=== PATIENT | female | born 1975 | race Caucasian/White ===

== ENCOUNTER → 2018-04-27 15:30 | Outpatient (CLI) | payer OTHER, SELFPAY ==
--- NOTE | 2018-04-27 15:33 | BI_ITS ---
MAMMOGRAPHY - BILATERAL SCREENING REASON FOR EXAM: Female, 43 years old. Routine annual screening examination. PERTINENT HISTORY: Non-contributory. TECHNIQUE: Digital bilateral breast robyn (3D mammographic acquisition) in the CC and MLO projections. 2-D mediolateral oblique (MLO) and craniocaudad (CC) views of both breasts were obtained. CAD: Full Field Digital Mammography with Computer Added Detection was performed. COMPARISON: Comparison is made with prior study dated December 20, 2016. FINDINGS: Breast Composition: The breasts are heterogeneously dense, which may obscure small masses. There are no dominant masses or suspicious calcifications. No other significant abnormalities are identified. There has been no significant change since the prior study. BI/SCREENING MAMM (CAD), BILAT IMPRESSION: Stable bilateral screening mammogram. Yearly follow-up mammogram recommended. (A) ASSESSMENT CATEGORY: BIRADS Category 1: Negative. A letter regarding these results will be sent to the patient by the facility within 30 days. Approximately 10% of breast cancers are not detected by mammography. A normal mammogram should not delay biopsy of a clinically suspicious abnormality. [id number] Electronically Signed: Pito Wilkins MD at 8:38 EST Tel [phone], Service support ,
== END ==
PROVIDERS: Family Provider Nurse Practitioner; PCP Nurse Practitioner; Visit Provider Nurse Practitioner
DX: Z12.31 Encounter for screening mammogram for malignant neoplasm of breast (principal)
CPT/HCPCS: 77063; 77067

== ENCOUNTER → 2019-05-21 15:28 | Outpatient (CLI) | payer OTHER, SELFPAY ==
--- NOTE | 2019-05-21 15:30 | BI_ITS ---
MAMMOGRAPHY - BILATERAL SCREENING REASON FOR EXAM: Female, 44 years old. Routine annual screening examination. PERTINENT HISTORY: Non-contributory. TECHNIQUE: Digital bilateral breast femi (3D mammographic acquisition) in the CC and MLO projections. 2-D mediolateral oblique (MLO) and craniocaudad (CC) views of both breasts were obtained. CAD: Full Field Digital Mammography with Computer Added Detection was performed. COMPARISON: Comparison is made with prior study dated April 27, 2018 and December 20, 2016. FINDINGS: Breast Composition: The breasts are heterogeneously dense, which may obscure small masses. There are no dominant masses or suspicious calcifications. No other significant abnormalities are identified. There has been no significant change since the prior study. BI/SCREEN MAMM (CAD) W/FEMI BILAT IMPRESSION: Stable bilateral screening mammogram. Yearly follow-up mammogram recommended. (A) ASSESSMENT CATEGORY: BIRADS Category 1: Negative. A letter regarding these results will be sent to the patient by the facility within 30 days. Approximately 10% of breast cancers are not detected by mammography. A normal mammogram should not delay biopsy of a clinically suspicious abnormality. [id number] Electronically Signed: Pito Wilkins, at 8:20 EST , Service support ,
== END ==
PROVIDERS: Family Provider Nurse Practitioner; PCP Nurse Practitioner; Referring Provider Nurse Practitioner; Visit Provider Nurse Practitioner
DX: Z12.31 Encounter for screening mammogram for malignant neoplasm of breast (principal)
CPT/HCPCS: 77063; 77067

== ENCOUNTER → 2019-10-16 11:05 | Outpatient (CLI) | payer OTHER, SELFPAY ==
--- NOTE | 2019-10-16 11:08 | RAD_ITS ---
STUDY: X-RAY - LEFT HAND REASON FOR EXAM: Female, 44 years old. Injury 2 weeks ago, pain at base of index finger TECHNIQUE: 3 view(s) of the hand. COMPARISON: None. FINDINGS: Normal radiocarpal articulation. Normal distal radioulnar joint. Normal visualized carpal bones. Normal carpal articulations Normal carpometacarpal articulation of the thumb. Normal second through fifth carpometacarpal joints. Normal metacarpi. Normal metacarpophalangeal joint of the thumb. Normal interphalangeal joint of the thumb. Normal proximal and distal phalanges of the thumb. Normal metacarpophalangeal joints of the second through fifth fingers. Normal proximal and distal interphalangeal joints of the second through fifth fingers. Normal phalanges of the second through fifth fingers. The soft tissue structures are unremarkable. RAD/Hand Min 3 Views IMPRESSION: Normal x-ray examination of the hand. Electronically Signed: Pito Wilkins, at 11:29 EDT , Service support ,
== END ==
PROVIDERS: PCP Nurse Practitioner; Referring Provider Nurse Practitioner; Visit Provider Nurse Practitioner
DX: M79.642 Pain in left hand (principal)
CPT/HCPCS: 73130

== ENCOUNTER → 2019-10-31 16:10 | Outpatient (CLI) | payer OTHER, SELFPAY ==
[2019-11-06 20:40] LABS: HPV Reflexed? NOT INDICATED
== END ==
PROVIDERS: PCP Nurse Practitioner; Visit Provider Obstetrics & Gynecology
DX: Z12.4 Encounter for screening for malignant neoplasm of cervix (principal)
CPT/HCPCS: 88175; G0145

== ENCOUNTER → 2019-11-29 12:00 | Outpatient (CLI) | payer OTHER, SELFPAY ==
--- NOTE | 2019-11-29 12:00 | EMB_PTH ---
PATIENT: SORAYA JARRETT LOC: [facility] U#:[id number] AGE/SX: 50/F ROOM: RE11/29/[address]: Dr. Axel Johnson MD : 1975 BED: DIS: SPEC #: [id number] RECD: 11/29/19 13:56 STATUS: NATIVIDAD REQ #: [id number] JUANI: 11/29/19 12:[address]: Axel Johnson DEPT: SURGICAL PATHOLOGY RECD BY: Wang Wells ENTERED: 11/30/19 08:14 SP TYPE: ENDODai BX/C ALYSON DR: Shruti Rios, DONOR SERVICES TECHNICIAN-C Tissues: Endometrium, NOS Procedures: Surgery Specimen Level IV HEADER OPERATION: Endometrial biopsy PRE-OP DIAGNOSIS: N92.8 TISSUE SUBMITTED: Endometrial biopsy MICROSCOPIC DIAGNOSIS Endometrial biopsy: Proliferative endometrium. SJ:renetta 12/03/19 MICROSCOPIC DESCRIPTION Slides are reviewed. GROSS DESCRIPTION Received in fixative is one container labeled with the patient's name and designated endometrial biopsy. The specimen consists of multiple irregular fragments of pink-hogan soft tissue that in aggregate measure 2 x 2 x 0.2 cm. The specimen is totally submitted in one cassette. / AM:renetta 11/30/19 TC:4 CPT: 42483
== END ==
PROVIDERS: PCP Nurse Practitioner; Referring Provider Obstetrics & Gynecology; Visit Provider Obstetrics & Gynecology
DX: N92.6 Irregular menstruation, unspecified (principal)
CPT/HCPCS: 88305

== ENCOUNTER 2020-01-07 08:39 | Day surgery (SDC) | payer OTHER, SELFPAY ==
[2020-01-02 11:59] LABS: Hematocrit 42.5 % (37-47); Hemoglobin 14.4 g/dL (12.0-15.0); Mean Corp Hgb Conc 33.9 g/dL (32-36); Mean Corpuscular Hgb 32.1 pg (27.0-32.0); Mean Corpuscular Volume 94.7 fL (81-99); Mean Platelet Vol. 9.8 fl (6.2-12.0); Platelet Count 318 K/mm3 (150-450); RBC Distribution Width CV 12.2 % (11.6-14.6); RBC Distribution Width SD 42.9 fl (35.1-43.9); Red Blood Count 4.49 M/mm3 (4.2-5.4); White Blood Count 5.2 K/mm3 (4.4-11.0)
[2020-01-02 12:03] LABS: Partial Thromboplast Time 27.4 Seconds (24.1-36.2); Prothrombin Time (Protime)PT. 12.6 SECONDS (11.7-14.9)
--- NOTE | 2020-01-06 18:42 | HP.PCM_ITS ---
History and Physical Date of Admission: 01/07/20 Surgical History and Physical Alix Pantoja, a 44 year old female 3 0 0 0 3, presents for HTA, Hysteroscopy and D and C on January 07, 2020 at 10:15. -- Menorrhagia -- heavy menses which began years ago. Alix claims it started gradually It occurs with menses. It is located in the vagina. Associated signs and symptoms are prior tubal for BC. Additional comments are: pelvic u/s was normal and EMBx OK. MEDICATIONS HISTORY: Patient is also takin. No Meds ALLERGIES: No Known Allergies Infections - Chicken pox Illnesses - no serious past illnesses Accidents - None Hospitalizations - see surgery Review of Systems: GENERAL - Denies fever, or chills SKIN - Denies skin changes EYES - Denies visual changes EARS - Denies difficulty hearing NOSE - Denies nasal congestion or bleeding MOUTH - Denies sore throat or difficulty swallowing NECK - Denies pain or swelling RESPIRATORY - Denies shortness of breath or wheezing CARDIOVASCULAR - Denies palpitations or chest pain GASTROINTESTINAL - Denies nausea, vomiting, diarrhea, constipation GENITOURINARY - Denies dysuria, frequency of urination, incontinence of urine MUSCULOSKELETAL - Denies joint or muscle pain NEUROLOGICAL - Denies localized numbness or weakness PSYCHIATRIC - Denies depression or anxiety ENDOCRINE - Denies heat or cold intolerance, weight loss or gain HEMATO-IMMUNOLOGIC - Denies excessive bleeding with cuts SOCIAL HISTORY: Alcohol Use - socially Smoking - Never Diet - no special diet Lifestyle - moderate stress lifestyle and Exercise - very active Seat Belt Use - always Employer - [employer] Job Description - Principal at [employer] Illicit Drug Use - None Sexual Activity - Spouse-Sig Other Name - Eric Spouse-Sig Other Occupation - [employer] Director at [employer] Children Name(s) - 3 children Control - Prior Tubal FAMILY HISTORY: MENSTRUAL HISTORY: LMP Known?- DefiniteAmount/Duration - 7 to 10 days, Regularity - Regular, Frequency - monthly days, LMP - 12/20/19, Age Onset Menarche - 14 PAST PREGNANCIES: Total Pregnancies - 3; Full Term Pregnancies - 3; Premature - 0; Abortions, Induced - 0; Abortions, Spontaneous - 0; Ectopics - 0; Multiple Births - 0; Living Children - 3 SURGICAL HISTORY: 1. 12/21/2002 2. 12/05/2004 3. 11/25/2007 and Tubal 2017 (L) Foot Surgery PHYSICAL EXAM BP- 124/80 Sitting, Right arm, regular cuff Weight- 149.30184 lbs Height- 65 inch BMI:24.85 CONSTITUTIONAL - NAD, well nourished, and well developed SKIN - No rash, lesions, or ulcers HEENT - Normocephalic, PERRLA, EOMI NECK - No nodes, no nuchal rigidity and thyroid normal size and texture LYMPH NODES - Palpation of lymph nodes in neck and groins within normal limits LUNGS - CTA x2 without wheezes, crackles or rales CARDIAC - Regular rate and rhythm without rubs, murmurs, or gallops BREAST - No dominant masses, no tenderness, no axillary adenopathy, no nipple discharge, no skin changes ABDOMEN - Without hepatosplenomegaly, distention, masses, rebound, or guarding; normal bowel sounds; no hernias EXTREMITIES - No edema or calf tenderness NEUROLOGICAL - Cranial nerves II-XII grossly intact PSYCHIATRIC - A and O to time, place, person, mood and affect External Genitial Vagina - non-tender without lesions Urethra/Urethral Meatus - non-tender Bladder - non-tender Vagina - vaginal greene are pink and moist without loss of rugae and no evidence of atropy Cervix - without cervical motion tenderness and has normal size and features without evident lesions Uterus - enlarged uterus 8 wks, wt 125-150 g Adnexa - clear without masses or tenderness ASSESSMENT/PLAN: 1. Premenopausal Menorrhagia U/S without fibroids or polyps. Wants to proceed with ablation. Discussed RBAs and all questions answered. Plan H/S, D and C and HTA.
[2020-01-07 09:01] VITALS: BP 113/76; PULSE 42; RESP 16; TEMP 36.5; O2SAT 100; BMI 25.4
[2020-01-07] MEDS: Lactated Ringers 1,000 ML 100 ML IV (09:18)
--- NOTE | 2020-01-07 10:15 | EMB_PTH ---
PATIENT: SORAYA JARRETT LOC: [facility] [place] U#:[id number] AGE/SX: 44/F ROOM: RE01/07/[address]: Dr. Axel Johnson MD : 1975 BED: DIS: 01/07/2020 SPEC #: [id number] RECD: 01/07/20 13:31 STATUS: NATIVIDAD MEGHAN #: [id number] JUANI: 01/07/20 10:[address]: Axel Johnson DEPT: SURGICAL PATHOLOGY RECD BY: Mary Lou Ochoa ENTERED: 01/08/20 14:00 SP TYPE: ENDOM BX/C OT DR: Shruti Rios, SANDING MACHINE TENDER AUTOMATIC-C Tissues: Endometrium, NOS Procedures: Surgery Specimen Level IV HEADER OPERATION: Hysteroscopy, D & C hydroablation PRE-OP DIAGNOSIS: Premenopausal menorrhagia TISSUE SUBMITTED: Endometrial curettings MICROSCOPIC DIAGNOSIS Endometrium, curettings: Secretory endometrium. AM:renetta 01/09/20 MICROSCOPIC DESCRIPTION Slides are reviewed. GROSS DESCRIPTION Received in fixative is one container labeled with the patient's name and designated endometrial curettings. The specimen consists of multiple irregular fragments of light hogan soft tissue that in aggregate measure 7 x 5 x 0.2 cm. The specimen is totally submitted in three cassettes. / AM:renetta 01/08/20 TC:5 CPT: 57603
[2020-01-07] MEDS: oxyCODONE 5 MG Tablet PO (11:15)
--- NOTE | 2020-01-07 11:31 | PCM.OPRPT ---
Report of Operation Date of Procedure: 01/07/20 Pre-Operative Diagnosis: Menorrhagia Post-Operative Diagnosis: Menorrhagia Surgery/Procedure Performed:: Diagnostic Hysteroscopy, Dilation and Curettage, Hydrothermal Ablation Description of Surgical Findings:: 8 cm endometrial cavity without polyps or fibroids present. Cervix which minimally prolapse with tenaculum pull-down Type of Anesthesia:: General - LMA Anesthesiologist: Cecilia Mohamud Specimen's removed: Endometrial curettings Estimated Blood Loss (mL): Minimal Fluids Replaced: Crystalloid Description of Procedure: Surgeon: Axel Johnson MD, FACOG Indication: This is a 44 year old patient who has been having problems with extremely heavy menses. Conservative measures have not been helpful. Endometrial sampling was benign and pelvic ultrasound showed that ablation may be helpful. Pt has been counseled regarding the risks, benefits and alternatives of this procedure and all questions answered. She understands that only about half of patients will have amenorrhea after this procedure. Procedure: Patient taken to the operating room where after induction of general anesthesia the patient was prepped and draped in the usual sterile fashion. Bladder was drained of urine with a catheter. Anterior cervix grasped and cervix was dilated to about 17 Faroese size. Hysteroscopic hydrothermal ablation (HTA) unit was place in the cervix and the above findings were noted. HTA unit was removed and the uterus was gently curetted removing all contents. An HTA ablation cycle was then carried out at about 90 degrees Centigrade for 10 minutes with virtually no fluid loss during the procedure. After an appropriate cool down the HTA unit was removed with minimal bleeding noted. The patient tolerated the procedure well and was taken to the recovery room in satisfactory condition. Sponge, instruments and needle counts were all correct. There were no apparent complications of the surgery. Cefotetan 2 gms IV was given prior to the procedure. Grafts/Implants Used: None - Complications None - Admit VTE Documentation VTE Present on Admission: Yes VTE Mechan Device Prophylaxis: SCD's
--- NOTE | 2020-01-07 11:35 | PCM.DC.D&C ---
Discharge Diet: No Restrictions Discharge Activity: Return to Normal Activity, May not drive while taking narcotic pain medications., May Shower, May Take a Tub Bath May resume sexual activity in: 3 weeks Call your doctor if you observe: Fever of 101 or Higher, Inability to urinate, Inability to have a bowel movement, Using more than one pad per hour Allergies/Adverse Reactions: Allergies No Known Allergies Allergy (Verified 01/07/20 08:58) Medications to take at Discharge Oxycodone [Oxyir] 5 mg PO Q6H PRN PRN 7 Days #10 tab 01/07/20 The following prescriptions were given: Oxycodone [Oxyir] 5 mg PO Q6H PRN PRN 7 Days #10 tab PRN Reason: Pain Score [id number] Transmission Status: Received by [facility]/pharmacy #[id number] Primary Care Physician: Shruti Rios NP-C [Primary Care Provider] - Test Results: Test results from this visit will be discussed in further detail at your follow-up appointment, if applicable. Please Follow Up With: Axel Johnson MD When: 3 to 4 weeks.
[2020-01-07 11:36] VITALS: BP 113/76; BP 124/81; PULSE 73; RESP 16; TEMP 36.7; O2SAT 97
[2020-01-07 11:45] VITALS: BP 113/76; BP 134/84; PULSE 47; RESP 16; O2SAT 97
[2020-01-07 12:00] VITALS: BP 113/76; BP 135/73; PULSE 42; RESP 16; O2SAT 99
[2020-01-07 12:15] VITALS: BP 113/76; BP 133/80; PULSE 44; RESP 16; TEMP 36.1; O2SAT 99
[2020-01-07 13:01] VITALS: BP 113/76; BP 140/83; PULSE 48; RESP 15; TEMP 36.4; O2SAT 99
== END 2020-01-07 13:04 | disposition home or self-care (01) ==
LOC: SDC 08:40 → AC 08:40
PROVIDERS: Anesthesiology; PCP Nurse Practitioner; Referring Provider Obstetrics & Gynecology; Visit Provider Obstetrics & Gynecology
PROC: 0U5B8ZZ Destruction of Endometrium, Via Natural or Artificial Opening Endoscopic (ICD-10-PCS; CPT 58563; principal; 2020-01-07 10:00)
DX: N92.4 Excessive bleeding in the premenopausal period (principal); Z20.828 Contact with and (suspected) exposure to other viral communicable diseases
CPT/HCPCS: 58563; 36415; 85027; 85610; 85730; 86850; 86900; 86901; 87635; 88305; G2023; J7120; J2405; U0003

== ENCOUNTER → 2020-05-27 07:40 | Outpatient (CLI) | payer OTHER, SELFPAY ==
--- NOTE | 2020-05-27 07:42 | BI_ITS ---
MAMMOGRAPHY - BILATERAL SCREENING REASON FOR EXAM: Female, 45 years old. Routine annual screening examination. PERTINENT HISTORY: Non-contributory. TECHNIQUE: Digital bilateral breast femi (3D mammographic acquisition) in the CC and MLO projections. 2-D mediolateral oblique (MLO) and craniocaudad (CC) views of both breasts were obtained. CAD: Full Field Digital Mammography with Computer Added Detection was performed. COMPARISON: Comparison is made with prior study dated 05/21/2019 and 04/27/2018. FINDINGS: Breast Composition: The breasts are heterogeneously dense, which may obscure small masses. There are no dominant masses or suspicious calcifications. No other significant abnormalities are identified. There has been no significant change since the prior study. BI/SCREEN MAMM (CAD) W/FEMI BILAT IMPRESSION: Stable bilateral screening mammogram. Yearly follow-up mammogram recommended. (A) ASSESSMENT CATEGORY: BIRADS Category 1: Negative. A letter regarding these results will be sent to the patient by the facility within 30 days. Approximately 10% of breast cancers are not detected by mammography. A normal mammogram should not delay biopsy of a clinically suspicious abnormality. [id number] Electronically Signed: Pito Wilkins, at 8:30 EST , Service support ,
== END ==
PROVIDERS: PCP Nurse Practitioner; Referring Provider Obstetrics & Gynecology; Visit Provider Obstetrics & Gynecology
DX: Z12.31 Encounter for screening mammogram for malignant neoplasm of breast (principal)
CPT/HCPCS: 77063; 77067

== ENCOUNTER 2021-07-21 10:05 | Outpatient (CLI) | payer OTHER, SELFPAY ==
--- NOTE | 2021-07-21 10:07 | BI_ITS ---
MAMMOGRAPHY - BILATERAL SCREENING REASON FOR EXAM: Female, 46 years old. Routine annual screening examination. PERTINENT HISTORY: Non-contributory. TECHNIQUE: Digital bilateral breast femi (3D mammographic acquisition) in the CC and MLO projections. 2-D mediolateral oblique (MLO) and craniocaudad (CC) views of both breasts were obtained. CAD: Full Field Digital Mammography with Computer Added Detection was performed. COMPARISON: Comparison is made with prior examination dated 05/27/2020 and 05/21/2019. FINDINGS: Breast Composition: The breasts are heterogeneously dense, which may obscure small masses. There are no dominant masses or suspicious calcifications. No other significant abnormalities are identified. There has been no significant change since the prior study. BI/SCRN MAMM (CAD)W/FEMI BILAT IMPRESSION: Stable bilateral screening mammogram. Yearly follow-up mammogram recommended. (A) ASSESSMENT CATEGORY: BIRADS Category 1: Negative. A letter regarding these results will be sent to the patient by the facility within 30 days. Approximately 10% of breast cancers are not detected by mammography. A normal mammogram should not delay biopsy of a clinically suspicious abnormality. [id number] Electronically Signed: Pito Wilkins MD at 11:11 EST ,
== END 2021-07-21 23:59 | disposition home or self-care (01) ==
LOC: OPBI 10:05
PROVIDERS: PCP Nurse Practitioner; Referring Provider Obstetrics & Gynecology; Visit Provider Obstetrics & Gynecology
DX: Z12.31 Encounter for screening mammogram for malignant neoplasm of breast (principal)
CPT/HCPCS: 77063; 77067

== ENCOUNTER → 2022-08-02 | Outpatient (CLI) | payer OTHER, SELFPAY ==
--- NOTE | 2022-08-02 13:39 | BI_ITS ---
MAMMOGRAPHY - BILATERAL SCREENING REASON FOR EXAM: Female, 47 years old. Routine annual screening examination. PERTINENT HISTORY: Non-contributory. TECHNIQUE: Digital bilateral breast femi (3D mammographic acquisition) in the CC and MLO projections. 2-D mediolateral oblique (MLO) and craniocaudad (CC) views of both breasts were obtained. CAD: Full Field Digital Mammography with Computer Added Detection was performed. COMPARISON: Comparison is made with prior study of July 2021 and 05/27/2020. FINDINGS: Breast Composition: The breasts are heterogeneously dense, which may obscure small masses. There are no dominant masses or suspicious calcifications. No other significant abnormalities are identified. There has been no significant change since the prior study. BI/SCRN MAMM (CAD)W/FEMI BILAT IMPRESSION: Stable bilateral screening mammogram. Yearly follow-up mammogram recommended. (A) ASSESSMENT CATEGORY: BIRADS Category 1: Negative. A letter regarding these results will be sent to the patient by the facility within 30 days. Approximately 10% of breast cancers are not detected by mammography. A normal mammogram should not delay biopsy of a clinically suspicious abnormality. [id number] Electronically Signed: Pito Wilkins MD at 14:47 EST ,
== END | disposition home or self-care (01) ==
PROVIDERS: PCP Family Medicine; Referring Provider Family Medicine; Visit Provider Family Medicine
DX: Z12.31 Encounter for screening mammogram for malignant neoplasm of breast (principal)
CPT/HCPCS: 77063; 77067

== ENCOUNTER → 2022-12-20 | Outpatient (CLI) | payer OTHER, SELFPAY ==
[2022-12-22 13:08] LABS: HPV APTIMA, High Risk Negative (Negative)
== END | disposition home or self-care (01) ==
LOC: LABSPEC 10:10
PROVIDERS: PCP Family Medicine; Visit Provider Nurse Practitioner Women's Health
DX: Z01.419 Encounter for gynecological examination (general) (routine) without abnormal findings (principal)
CPT/HCPCS: 87624; 88175; G0145

== ENCOUNTER → 2024-05-02 | Outpatient (CLI) | payer OTHER, SELFPAY ==
--- NOTE | 2024-05-02 12:02 | BI_ITS ---
MAMMOGRAPHY - BILATERAL SCREENING REASON FOR EXAM: Female, 49 years old. Routine annual screening examination. PERTINENT HISTORY: Non-contributory. TECHNIQUE: Digital bilateral breast femi (3D mammographic acquisition) in the CC and MLO projections. 2-D mediolateral oblique (MLO) and craniocaudad (CC) views of both breasts were obtained. CAD: Full Field Digital Mammography with Computer Added Detection was performed. COMPARISON: Comparison is made with prior study dated August 02, 2022 and July 21, 2021. FINDINGS: Breast Composition: The breasts are heterogeneously dense, which may obscure small masses. There are no dominant masses or suspicious calcifications. No other significant abnormalities are identified. There has been no significant change since the prior study. BI/SCRN MAMM (CAD)W/FEMI BILAT IMPRESSION: Stable bilateral screening mammogram. Yearly follow-up mammogram recommended. (A) ASSESSMENT CATEGORY: BIRADS Category 1: Negative. A letter regarding these results will be sent to the patient by the facility within 30 days. Approximately 10% of breast cancers are not detected by mammography. A normal mammogram should not delay biopsy of a clinically suspicious abnormality. [id number] Electronically Signed: Pito Wilkins MD at 13:15 EST ,
== END | disposition home or self-care (01) ==
LOC: OPBI 12:02
PROVIDERS: PCP Nurse Practitioner Family; Referring Provider Nurse Practitioner Family; Visit Provider Nurse Practitioner Family
DX: Z12.31 Encounter for screening mammogram for malignant neoplasm of breast (principal)
CPT/HCPCS: 77063; 77067

== ENCOUNTER 2024-07-04 10:51 | Day surgery (SDC) | payer OTHER, SELFPAY ==
[2024-07-04] VITALS (7 sets, daily range): BP systolic 87–116; BP diastolic 55–77; PULSE 50–62; RESP 16; TEMP 36.1; O2SAT 97–100; BMI 26.0
--- NOTE | 2024-07-04 11:21 | PRE.ANES_ITS ---
ASA Classification* ASA Classification ASA Classification: 1 Assessment & Plan Anesthesia* Anesthesia Assessment Anesthesia Assessment: Discussed sedation and/or anesthesia options, risks, benefits, and alternatives with patient/parents/legal guardian/POA. Questions invited. The patient/parents/legal guardian/POA seems to understand and agrees to proceed with anesthesia plan. Reviewed the physical assessment, medical history, allergy history and patient home medications list prior to surgery/procedure/anesthetic and documented any changes. Performed airway and anesthesia risk assessments. Anesthesia Type Anesthesia Type: MAC History Source History Obtained from:: Patient and Chart Anesthesia Focused Assessment* Temperature: 97.0 F Pulse Rate: 50 Blood Pressure: 116/77 Respiratory Rate: 16 Pulse Ox: 100 Oxygen Delivery Method: Room Air Airway Assessment Mouth opens: >3 cm Mallampati Score: I Teeth Condition: Intact Neck Range of motion (ROM): Full ROM Focused Labs Anesthesia Preop lab: CBC WBC 5.2 K/mm3 (4.4-11.0) 01/02/20 10:55 RBC 4.49 M/mm3 (4.2-5.4) 01/02/20 10:55 Hgb 14.4 g/dL (12.0-15.0) 01/02/20 10:55 Hct 42.5 % (37-47) 01/02/20 10:55 Plt Count 318 K/mm3 (150-450) 01/02/20 10:55 CHEMISTRY COAG PT 12.6 SECONDS (11.7-14.9) 01/02/20 10:55 Pre-Assessment Diagnosis/Proposed Procedure Planned Operative Procedure(s): CSCOPE OA Anesthesia History Anesthesia History - ultrasound technician: Anesthesia History - ultrasound technician Hx Hospitalization No 07/03/24 08:51 Any Problems With Anesthesia No 07/03/24 08:51 Cholinesterase deficiency No 07/03/24 08:51 You/Your Family Experience No 07/03/24 08:51 fever (hyperthermia) with Relationship Recent Exposure to Contagious No 07/04/24 11:08 Disease Does patient have nerve No 07/03/24 08:51 stimulator Patient instructed to have device shut off --Does patient have Pacemaker or ICD? When Was Last Pacemaker Check QUESTION #4 FULL TEXT: You/Your Family Experience fever (hyperthermia) with Anesthesia Last Oral Intake Last Oral intake: Last Oral Intake NPO since 08:00 07/04/24 11:10 Meds taken in AM with sips of No 07/04/24 11:10 water? Meds patient instructed to take am of surgery PONV PONV - ultrasound technician: PONV - ultrasound technician Female Yes 07/03/24 08:51 HX of Motion Sickness Yes 07/03/24 08:51 HX of N/V After Surgery No 07/03/24 08:51 Non-Smoker Yes 07/03/24 08:51 Duration of Surgery greater No 07/03/24 08:51 than 60 minutes Number of Risk Factors 3 07/03/24 08:51 PONV Score Moderate Risk 07/03/24 08:51 Height & Weight Height & Weight: Anesthesia: Height & Weight Height 5 ft 5 in 07/04/24 11:10 Weight: 71 kg 07/04/24 11:10 Body Mass Index (BMI) 26.0 07/04/24 11:10 Respiratory Assessment Respiratory Assessment - ultrasound technician: Respiratory Tract Infection Hx - ultrasound technician Hx Respiratory Tract Infection No 07/03/24 08:51 STOP Sleep Apnea STOP Sleep Apnea - ultrasound technician: STOP Sleep Apnea - ultrasound technician Hx Hypertension No 07/03/24 08:51 Hx Sleep Apnea No 07/03/24 08:51 CPAP BIPAP Do you snore loudly (louder No 07/03/24 08:51 than talking or can be heard Do you often feel tired/ No 07/03/24 08:51 fatigued/ sleepy during daytime? Has anyone observed you stop No 07/03/24 08:51 breathing during sleep? STOP Results Negative 07/03/24 08:51 QUESTION #5 FULL TEXT : Do you snore loudly (louder than talking or can be heard through closed doors)? Tobacco Use History Tobacco Use History - ultrasound technician: Tobacco Use History - ultrasound technician Tobacco Use Smoking Status Never smoker 07/03/24 08:51 Hx Tobacco Use No 07/03/24 08:51 Years Smoking Packs Smoked per Day Smoking Cessation Date was within the last 15 years Hx Smoking Cessation Date Hx Smoking Cessation Counseling Hematologic Medial History Hematologic Hx - ultrasound technician: Hematologic Medical Hx - shoe stainer Hx of Blood Transfusion No 07/03/24 08:51 Hx of Transfusion in last 3 No 07/03/24 08:51 Months Date of Last Transfusion (if within last 3 months) Ever experience any problems No 07/03/24 08:51 with transfusion(s)? Specify any problems Hx of Preganancy in last 3 No 07/03/24 08:51 Months Nurse Filling Out Transfusion DSCHRIBER 07/03/24 08:51 & Questions: Date: 07/03/24 07/03/24 08:51 Time: 08:52 07/03/24 08:51 Patient unable to answer at this time (ie. confused, unrespo /Reproduction History /Reproductive History - ultrasound technician: /Reproductive Hx- ultrasound technician Hx Now No 07/03/24 08:51 Gestational Age (in weeks): EDC: Hx Hx Para Hx Section SAB No 07/03/24 08:51 [facility] Medical History Wears glasses Wears contact lenses Alcohol use Back pain Heartburn Non-smoker History of Holter monitoring Home Medications ?Medication ?Instructions ?Recorded ?Last Taken ?Type lactobacillus combination no.4 3 3,000 mmu cells PO QDAY 04/19/24 07/03/24 History billion cell capsule (Probiotic) progesterone micronized 100 mg 100 mg PO QAM 04/19/24 07/02/24 History capsule Allergy/AdvReac Type Severity Reaction Status Date / Time No Known Allergies Allergy Verified 07/03/24 08:51 Family History (Updated 04/19/24 @ 11:48 by Stacey Aragon) Father Colon polyps Grandfather Stomach cancer Surgical History (Updated 07/03/24 @ 08:56 by Katia Smith) Hx of tubal ligation Hx of section History of endometrial ablation Social History (Updated 04/19/24 @ 11:48 by Stacey Aargon) household members: spouse number of children: 3 current occupational status: employed Smoking Status: Never smoker alcohol intake: current alcohol intake frequency: holidays/special occasions only substance use type: does not use Review of Systems (Anesthesia) ROS Narrative System reviewed and no additional complaints, except as documented. Physical Exam Const alert and oriented x3 Neck full ROM Resp normal respiratory effort and normal air movement Cardio regular rate and regular rhythm Neuro oriented x3 and moves all extremities
--- NOTE | 2024-07-04 11:55 | HP.PCM_ITS ---
[facility] - General General Date of Admission: 07/04/24 Date of Service: 07/04/24 Chief Complaint: Screening colonoscopy HPI Narrative SORAYA JARRETT, is a 49 F who presents today for screening colonoscopy. She has never had a colonoscopy in the past. She does not take any medicines on daily basis except for progesterone and a probiotic. [facility] Medical History Wears glasses Wears contact lenses Alcohol use Back pain Heartburn Non-smoker History of Holter monitoring Home Medications ?Medication ?Instructions ?Recorded ?Last Taken ?Type lactobacillus combination no.4 3 3,000 mmu cells PO QDAY 04/19/24 07/03/24 History billion cell capsule (Probiotic) progesterone micronized 100 mg 100 mg PO QAM 04/19/24 07/02/24 History capsule Allergy/AdvReac Type Severity Reaction Status Date / Time No Known Allergies Allergy Verified 07/03/24 08:51 Family History Father Colon polyps Grandfather Stomach cancer Surgical History Hx of tubal ligation Hx of section History of endometrial ablation Social History household members: spouse number of children: 3 current occupational status: employed Smoking Status: Never smoker alcohol intake: current alcohol intake frequency: holidays/special occasions only substance use type: does not use ROS Constitutional Constitutional: Denies fatigue, fever(s), poor appetite, weight gain or weight loss Gastrointestinal Gastrointestinal: Denies belching, bloating, change in bowel habits, change in stool character, chewing difficulty, coffee ground emesis, constipation, cramping, diarrhea, dyspepsia, dysphagia, early satiety, excessive flatus, fecal incontinence, heartburn, hematemesis, hematochezia, hemorrhoids, loose stools, melena, nausea, odynophagia, rectal bleeding, tenesmus, vomiting or weight changes Vital Signs Vital Signs Vital Signs: 07/04/24 11:08 07/04/24 11:10 07/04/24 11:27 Temperature 97.0 F L 97.0 F L Temperature Source Temporal Pulse Rate 50 L 50 L Respiratory Rate 16 16 Respiratory Pattern Normal Blood Pressure 116/77 116/77 Blood Pressure Mean 90 Blood Pressure Source Monitor Blood Pressure Position Semi-Fowlers Blood Pressure Location Left Arm Pulse Ox 100 100 Oxygen Delivery Method Room Air Room Air Weight Weight: 156 lb 8.451 oz Body Mass Index (BMI) 26.0 Physical Exam Const alert, oriented x3, no apparent distress and healthy appearing General Appearance: cooperative GI normal to inspection, nondistended, normoactive bowel sounds, soft to palpation, non-tender and non-distended Percussion: normal to percussion Rectal Exam: deferred Assessment & Plan Assessment/Plan (1) Encounter for screening for malignant neoplasm of colon: PLAN: She was explained alternatives including not withstanding bleeding, infection, sepsis, perforation, need for urgent . She will have an ASA of 3.
--- NOTE | 2024-07-04 12:34 | PCM.POST.ANE ---
Anesthesia: Postop Eval I Current Vital Signs Temperature: 97 F Pulse Rate: 57 Blood Pressure: 87/56 Respiratory Rate: 16 Pulse Ox: 98 Oxygen Delivery Method: Room Air Assessment Airway patent: Yes Spontaneous unlabored respirations: Yes Mental status: Asleep nausea: No Vomiting: No Anesthesia Complication: No Fluid Hydration Crystalloid volume administer (ml): 40 Total IV fluid infused: 40 Progress Note Anesthesia document: Postop Eval 1 completed: Yes
--- NOTE | 2024-07-04 12:40 | OP.COLON_ITS ---
Patient Name: Alix Pantoja Procedure Date: 07/04/2024 12:01 PM Date of : 1975 Age: 49 Procedure: Colonoscopy Indications: Screening for colorectal malignant neoplasm Providers: Antonio Akins DO Medicines: Monitored Anesthesia Care Patient Profile: This is a 49 year old female. Refer to note in patient chart for documentation of history and physical. Last Colonoscopy: none. The patient's first colonoscopy is today. Complications: No immediate complications. Procedure: Pre-Anesthesia Assessment: - Prior to the procedure, a History and Physical was performed, and patient medications and allergies were reviewed. The patient is competent. The risks and benefits of the procedure and the sedation options and risks were discussed with the patient. All questions were answered and informed consent was obtained. Patient identification and proposed procedure were verified by the physician in the pre-procedure area. Mental Status Examination: alert and oriented. Airway Examination: normal oropharyngeal airway and neck mobility. Respiratory Examination: clear to auscultation. CV Examination: normal. Prophylactic Antibiotics: The patient does not require prophylactic antibiotics. Prior Anticoagulants: The patient has taken no anticoagulant or antiplatelet agents except for NSAID medication. ASA Grade Assessment: II - A patient with mild systemic disease. After reviewing the risks and benefits, the patient was deemed in satisfactory condition to undergo the procedure. The anesthesia plan was to use monitored anesthesia care (MAC). Immediately prior to administration of medications, the patient was re-assessed for adequacy to receive sedatives. The heart rate, respiratory rate, oxygen saturations, blood pressure, adequacy of pulmonary ventilation, and response to care were monitored throughout the procedure. The physical status of the patient was re-assessed after the procedure. After I obtained informed consent, the scope was passed under direct vision. Throughout the procedure, the patient's blood pressure, pulse, and oxygen saturations were monitored continuously. The Colonoscope was introduced through the anus and advanced to the cecum, identified by appendiceal orifice and ileocecal valve. The colonoscopy was performed without difficulty. The patient tolerated the procedure well. The quality of the bowel preparation was adequate. The ileocecal valve, appendiceal orifice, and rectum were photographed. Scope In: 12:15:50 PM Scope Withdrawal Time 0 hours 9 minutes 10 seconds Scope Out: 12:28:54 PM Total Procedure Duration Time 0 hours 13 minutes 4 seconds Findings: The perianal and digital rectal examinations were normal. A few small-mouthed diverticula were found in the recto-sigmoid colon. The exam was otherwise without abnormality on direct and retroflexion views. Mild rectal prolapse was present. Impression: - Diverticulosis in the recto-sigmoid colon. - The examination was otherwise normal on direct and retroflexion views. - Rectal prolapse. - No specimens collected. Recommendation: - Discharge patient to home. - Resume previous diet. - Continue present medications. - Repeat colonoscopy in 10 years for screening purposes. Procedure Code(s): --- Professional --- G0121, Colorectal cancer screening; colonoscopy on individual not meeting criteria for high risk CPT copyright 2021 [employer]. All rights reserved. The codes documented in this report are preliminary and upon poker supervisor review may be revised to meet current compliance requirements. Antonio Akins DO 07/04/2024 12:39:50 PM This report has been signed electronically. Number of Addenda: 0 Note Initiated On: 07/04/2024 12:01 PM
--- NOTE | 2024-07-04 12:40 | OP.CCLET_ITS ---
07/04/2024 John Avalos Re : Colonoscopy procedure for Alix Pantoja Dear Andi This procedure was performed on Thursday, July 04, 2024. My impressions and recommendations are as follows: Impressions : - Diverticulosis in the recto-sigmoid colon. - The examination was otherwise normal on direct and retroflexion views. - Rectal prolapse. - No specimens collected. Recommendations : - Discharge patient to home. - Resume previous diet. - Continue present medications. - Repeat colonoscopy in 10 years for screening purposes. My findings are described in the full procedure note, which is enclosed. If I can be of further assistance, please feel free to contact me at . Sincerely, Antonio Akins, 07/04/2024 12:39:50 PM This report has been signed electronically.
--- NOTE | 2024-07-04 12:42 | PCM.POSTANE2 ---
Anesthesia Postop Eval I Sum Postop Eval Completion status Anesthesia document: Postop Eval 1 completed: Yes Anesthesia Postop Eval I Summary Anesthesia Postop Eval I Summary: Anesthesia Postop Eval I: Assessment Summary Airway patent Yes 07/04/24 12:35 [email or web address] Spontaneous unlabored Yes 07/04/24 12:35 [email or web address] respirations Mental status Asleep 07/04/24 12:35 [email or web address] nausea No 07/04/24 12:35 [email or web address] Vomiting No 07/04/24 12:35 [email or web address] Anesthesia Postop Eval I: Fluid Summary Crystalloid volume administer 40 07/04/24 12:35 [email or web address] (ml) Colloids volume administered ( ml) Blood Product volume administered (ml) Total IV fluid infused 40 07/04/24 12:35 [email or web address] Anesthesia Postop Eval I: Summary Notes Anesthesia Complication No 07/04/24 12:35 [email or web address] Anesthesia Complication Comment: Post-operative progress note Anesthesia: Postop Eval II Evaluation Mental status: Awake Pain Level: 0 nausea: No Vomiting: No Complications Anesthesia Complication: No
== END 2024-07-04 13:20 | disposition home or self-care (01) ==
LOC: EN 10:53 → AC 10:54
PROVIDERS: PCP Nurse Practitioner Family; Referring Provider Nurse Practitioner Family; Visit Provider Internal Medicine Gastroenterology
PROC: 0DJD8ZZ Inspection of Lower Intestinal Tract, Via Natural or Artificial Opening Endoscopic (ICD-10-PCS; CPT 45378; principal; 2024-07-04 11:55)
DX: Z12.11 Encounter for screening for malignant neoplasm of colon (principal); K62.3 Rectal prolapse; K57.30 Diverticulosis of large intestine without perforation or abscess without bleeding; Z80.0 Family history of malignant neoplasm of digestive organs
CPT/HCPCS: G0121; A4216; J2405